=== PATIENT | female | born 1990 | race Caucasian/White ===

== ENCOUNTER 2018-08-07 06:59 | Inpatient (IN) | payer OTHER ==
[~2018-08-07] VITALS: Ht 170.2 cm; Wt 114.8 kg
[~2018-08-07 06:59] MED LIST: Pantoprazole PO
[2018-08-07] MEDS ORDERED: TERBUTALINE 1 MG/ML VIAL. SQ PRN (07:30)
[2018-08-07] MEDS ORDERED: LIDOCAINE 1% PF 30 ML VIAL. INJ PRN (07:30)
[2018-08-07] MEDS ORDERED: AMPICILLIN SODIUM 2 GM in IV NORMAL SALINE 100ML 100 ML IV ONE (07:30)
[2018-08-07] MEDS ORDERED: fentaNYL PF VIAL 100 MCG/2 ML VIAL IV PRN (07:30)
[2018-08-07] MEDS ORDERED: IV RINGERS,LACTATED 1000ML 1,000 ML IV PRN (07:30)
[2018-08-07] MEDS ORDERED: 0.9 % SODIUM CHLORIDE 10 ML DISP.SYRIN. IV PRN ×2 (07:30→14:45)
[2018-08-07] MEDS ORDERED: OXYTOCIN 30 UNIT/500 ML PREMIX 500 ML IV PRN ×3 (07:30→14:45)
[2018-08-07 08:03] LABS: BASO # 0.1 x10^3/uL (0.0-0.2); BASO % 0 % (0-3); BILIRUBIN,URINE NEGATIVE (NEG); CLARITY,URINE CLEAR; COLOR,URINE AMBER; EOS # 0.2 x10^3/uL (0.0-0.7); EOS % 2 % (0-3); HEMATOCRIT 38.1 % (36.0-47.0); HEMOGLOBIN 12.5 g/dL (12.0-15.5); LYMPH # 3.3 x10^3/uL (1.0-4.8); LYMPH % 27 % (24-48); MEAN CORPUSCULAR HEMOGLOBIN 29 pg (25-35); MEAN CORPUSCULAR HGB CONC 33 g/dL (31-37); MEAN CORPUSCULAR VOLUME 90 fL (79-100); MONO # 0.7 x10^3/uL (0.0-1.1); MONO % 6 % (0-9); NEUT % 65 % (31-73); NITRITE,URINE NEGATIVE (NEG); PLATELET COUNT 316 x10^3/uL (140-400); PROTEIN,URINE NEGATIVE (NEG-TRACE); RED BLOOD COUNT 4.24 x10^6/uL (3.50-5.40); RED CELL DISTRIBUTION WIDTH 12.8 % (11.5-14.5); WHITE BLOOD COUNT 12.3 x10^3/uL (4.0-11.0)
[2018-08-07 08:04] VITALS: BP 106/51
[2018-08-07 08:35] LABS: BACTERIA,URINE MODERATE /HPF (0-FEW); SQUAMOUS EPITHELIAL CELL,UR MOD /LPF
[2018-08-07] MEDS ORDERED: AMPICILLIN SODIUM 1 GM in IV NORMAL SALINE 50ML 50 ML IV SCH (11:30)
[2018-08-07] MEDS ORDERED: L&D EPIDURAL SYRINGE 0 ML ONE (14:14)
--- NOTE | 2018-08-07 14:44 | PDOC1 ---
OB - History Hx of Present Care: Good Care Ultrasounds: Normal mid trimester US Obstetrical Complications: None Medical Complications: None Past Family/Social History * Past Medical, Surgical, Family and Obstetric Histories reviewed from chart. Blood Type: B+ Rubella: Immune RPR/VDRL: Negative GBS Status: Unknown HBsAG: Negative OB - Chief Complaint & HPI Date of Admission: Date of Admission: August 07, 2018 at 06:59 Chief Complaint/History : 2 Para: 1 EDC: August 11, 2018 Reason for admission: induction of labor Indication for induction: other Admission Nurse Assessment Rev: Yes OB - Admission Exam Physical Exam Vitals: VS - Last 72 Hours, by Label Date Time Temp Pulse Resp B/P (MAP) Pulse Ox O2 Delivery O2 Flow Rate FiO2 08/07/18 13:42 20 08/07/18 08:04 97.5 18 106/51 (69) 97.5 HEENT: Normal, Nasal Mucosa Normal, Oropharynx Normal, Moist Membranes, Fontanelles Normal Heart: Regular Rate Lungs: Clear, Equal Abdomen: Gravid Extremities: Normal Pulses, No tenderness or swelling Reflexes: Normal Cervical Dilatation: 3cm Effacement: 25% Membranes: Intact Heart Rate: Normal Accelerations: Accelerations Present Short Term Variability: Present Contractions on Admission: >10 Minutes Apart Intensity: Mild Assessment/Plan Assessment/Plan TIUP Induction ACSVD GEOVANNY SANCHEZ MD August 07, 2018 14:44
[2018-08-07] MEDS ORDERED: ACETAMINOPHEN 325 MG TABLET. PO PRN (14:45)
[2018-08-07] MEDS ORDERED: BENZOCAINE 20% TOPICAL AEROSOL SPRAY 57GM CAN. TP PRN (14:45)
[2018-08-07] MEDS ORDERED: IBUPROFEN 400 MG TABLET. PO PRN (14:45)
[2018-08-07] MEDS ORDERED: diphenhydrAMINE HCL 25 MG CAPSULE PO PRN (14:45)
[2018-08-07] MEDS ORDERED: MAG HYDROX/ALUMINUM HYD/SIMETH 30 ML ORAL.SUSP PO PRN (14:45)
[2018-08-07] MEDS ORDERED: PHENYLEPH/MINERAL OIL/PETROLAT RECTAL OINTMENT 28GM TUBE. RC PRN (14:45)
[2018-08-07] MEDS ORDERED: HYDROCORTISONE 1% TOPICAL OINTMENT 30GM TUBE. TP PRN (14:45)
[2018-08-07] MEDS ORDERED: ZOLPIDEM 5 MG TABLET. PO PRN (14:45)
[2018-08-07] MEDS ORDERED: MAGNESIUM HYDROXIDE 2,400 MG/30 ML ORAL.SUSP. PO PRN (14:45)
[2018-08-07] MEDS ORDERED: SIMETHICONE 80 MG TAB.CHEW PO PRN (14:45)
--- NOTE | 2018-08-07 14:45 | PDOC ---
VAGINAL DELIVERY DATE DATE: 08/07/18 TIME: 14:44 : 2 Para: 1 EDC: August 11, 2018 VAGINAL DELIVERY: VTX PLACENTA: Spontaneous SEX: Female WEIGHT 6/5 Nuchal Cord: No Amniotic Fluid: Clear PAIN: Local EPISIOTOMY: No REPAIRED WITH 300cc EBL 300cc COMPLICATIONS None CONDITION Stable Signs of Intrauterine Infectio: None Shoulder Dystocia: No DIAGNOSIS GEOVANNY Skinner MD August 07, 2018 14:45
[2018-08-07] MEDS: IBUPROFEN 400 MG TABLET. PO SCH (16:33)
[2018-08-07 16:59] VITALS: BP 112/62
[2018-08-07] MEDS ORDERED: FERROUS SULFATE 325 MG TABLET. PO SCH (17:00)
[2018-08-07] MEDS: DOCUSATE SODIUM 100 MG CAPSULE. PO PRN (21:07)
[2018-08-07 21:10] VITALS: BP 113/68
[2018-08-08] MEDS: IBUPROFEN 400 MG TABLET. PO PRN (00:39)
[2018-08-08 00:44] VITALS: BP 120/72
[2018-08-08 05:15] VITALS: BP 120/76
[2018-08-08] MEDS: IBUPROFEN 400 MG TABLET. PO SCH ×2 (06:00→15:45)
--- NOTE | 2018-08-08 09:25 | PDOC ---
Provider Note Provider Note Doing well VSS Uterus NTTP FU in AM CBC - BMP 08/08/18 03:15 Vital Sign - Last 24 Hours 08/07/18 08/07/18 08/07/18 08/07/18 13:42 16:59 19:55 21:10 Temp 98.0 98.8 98.0 98.8 Pulse 82 71 Resp 20 20 16 B/P (MAP) 112/62 (79) 113/68 (83) Pulse Ox 98 100 O2 Delivery Room Air Room Air Room Air 08/08/18 08/08/18 00:44 05:15 Temp 97.9 97.9 97.9 97.9 Pulse 77 60 Resp 14 16 B/P (MAP) 120/72 (88) 120/76 (91) Pulse Ox 100 99 O2 Delivery Room Air Room Air Intake and Output 08/07/18 08/07/18 08/08/18 15:00 23:00 07:00 Intake Total 120 ml 1200 ml Balance 120 ml 1200 ml GEOVANNY SANCHEZ MD August 08, 2018 09:25
[2018-08-08 11:09] VITALS: BP 122/87
[2018-08-08] MEDS: DOCUSATE SODIUM 100 MG CAPSULE. PO PRN (15:45)
[2018-08-08 18:51] VITALS: BP 122/82
[2018-08-08 22:32] VITALS: BP 132/80
[2018-08-09 06:33] VITALS: BP 118/76
[2018-08-09] MEDS: IBUPROFEN 400 MG TABLET. PO PRN (08:29)
[2018-08-09] MEDS ORDERED: DIPHTH,PERTUSS(ACELL),TET TOX 0.5 ML DISP.SYRIN. VAX IM ONE (09:00)
[2018-08-09 11:00] VITALS: BP 107/68
--- NOTE | 2018-08-09 12:56 | PDOC3 ---
OB DISCHARGE SUMMARY DATE OF ADMISSION: 08/07/18 DATE OF DISCHARGE: 08/09/18 REASON FOR ADMISSION: Onset of labor INTRAPARTUM PROCEDURES: Spontanous Vag Deliv DISCHARGE DIAGNOSIS: Term Delivered DISCHARGE INFORMATION: Activity (ad kvng), Diet (regular), Instructions (pelvic rest x 6 wks) HOSPITAL COURSE Term gestation delivered vaginally without complications. VENKAT ARMENDARIZ Jr, MD August 09, 2018 12:56
[2018-08-09] MEDS ORDERED: NAPR-514 PO (12:57)
--- NOTE | 2018-08-09 12:58 | DISCH ---
DISCHARGE INSTRUCTIONS Condition on Discharge Condition on Discharge: Stable Activity After Discharge Activity Instructions for Disc: Activity as tolerated Lifting Instructions after Dis: No heavy lifting Driving Instructions after Dis: Do not drive today Weight Bearing Status after Di: As tolerated Diet after Discharge Diet after Discharge: Low Fat, Regular Contacting the DRNimesh after DC Call your doctor for: Concerns you may have Follow-Up Follow up with: Dr. Juarez in 1 week Treatment/Equipment after DC Adaptive Equipment Issued: None VENKAT ARMENDARIZ Jr, MD August 09, 2018 12:58
[2018-08-09 13:53] VITALS: BP 128/83
--- NOTE | 2018-08-09 14:30 | NUR ---
Pt. denies questions or needs at this time. Pt. ambulatory, escorted by Bladimir Cruz RN to vehicle with NB in car seat, family, and belongings present. NB in back seat of vehicle, rear facing, on car seat base as placed by Pt.'s significant other. Pt. discharged home with NB.
== END 2018-08-09 14:30 | disposition home or self-care (01) | DRG 807 ==
LOC: 3 SO LND 06:59 → 3 NORTH 16:37
PROVIDERS: ADMIT Specialist; ATTEND Specialist
PROC: 10E0XZZ Delivery of Products of Conception, External Approach (ICD-10-PCS; principal; 2018-08-07)
DX: O80 Encounter for full-term uncomplicated delivery (principal); Z37.0 Single live birth; Z3A.39 39 weeks gestation of pregnancy
CPT/HCPCS: 36415; 81001; 85014; 85025; 86592; 86850; 86900; 86901; 87086; 90471; 90715; J0290; J2590; J3010; J7120

== ENCOUNTER → 2019-10-04 | Outpatient (CLI) | payer OTHER ==
[2018-10-25 14:29] VITALS: BP 134/68
[~2019-10-04] MED LIST changes: +CITA20TA6 PO; +NAPR-514 PO; +OXYC1TAB19 PO; +PHEN1TAB PO; +[UNRECOGNIZED DRUG - CODE] PO
--- NOTE | 2019-10-04 16:21 | KCIC ---
EXAM: Pelvic ultrasound HISTORY: Displaced intrauterine device. COMPARISON: None. FINDINGS: Sonographic evaluation of the pelvis was performed transvaginally. The uterus appears retroflexed on these images. An intrauterine device projects within the lower uterine segment and cervical canal. The endometrial stripe does not appear thickened. No masses are identified. The adnexa are not imaged currently. IMPRESSION: 1. The intrauterine device appears to be within the lower uterine segment and cervical canal. Correlate with desired placement. Electronically signed by: Paramjit Putnam MD (10/04/2019 4:18 PM) [id number]
== END | disposition home or self-care (01) ==
LOC: KCIC US 15:26
PROVIDERS: ATTEND Nurse Practitioner Women's Health
DX: Z30.430 Encounter for insertion of intrauterine contraceptive device (principal)
CPT/HCPCS: 76830